=== PATIENT | male | born 1990 | race Caucasian/White ===

== ENCOUNTER 2017-02-19 09:42 | Emergency (ER) | payer OTHER ==
[~2017-02-19] VITALS: Ht 188 cm; Wt 81.1 kg
[~2017-02-19 09:42] MED LIST: AUGMENTIN875 MG PO; BACTRIM,SEPT1 TABLET PO; NORCO 5/3251 TABLET PO; TOBREX5 ML RIGHT EYE; TYLENOL WITH C1 EACH PO
[2017-02-19 12:20] VITALS: BP 110/68
== END 2017-02-19 12:20 | disposition home or self-care (01) ==
LOC: EME 09:42
PROC: 3E0234Z Introduction of Serum, Toxoid and Vaccine into Muscle, Percutaneous Approach (ICD-10-PCS; principal; 2017-02-19)
DX: S61.532A Puncture wound without foreign body of left wrist, initial encounter (principal); W45.0XXA Nail entering through skin, initial encounter; Y92.69 Other specified industrial and construction area as the place of occurrence of the external cause; Y99.0 Civilian activity done for income or pay
CPT/HCPCS: 73110; 99281; 99284

== ENCOUNTER 2017-04-01 01:31 | Emergency (ER) | payer SELFPAY ==
[~2017-04-01] VITALS: Ht 190.5 cm; Wt 79.2 kg
[2017-04-01 02:37] LABS: EOSINOPHIL (%) 2.8 % (0-5); EOSINOPHIL COUNT 0.3 K/uL (0-0.3); HEMATOCRIT 42.7 % (38.0-50.0); IMMATURE GRANULOCYTE (%) 0.3 % (0.0-0.7); INSTRUMENT ABS NEUTROPHIL CT 6.5 K/uL; MCH 31.2 PG (29.0-34.0); MCHC 34.7 G/DL (30.0-36.0); MCV 89.9 FL (86-99); MEAN PLAT.VOLUME 9.1 uM^3 (9.0-12.4); MONOCYTE (%) 5.9 % (3-12); MONOCYTE COUNT 0.6 K/uL (0-0.8); NEUTROPHIL (%) 61.9 % (45-76); NEUTROPHIL COUNT 6.5 K/uL (1.8-6.4); PLATELET COUNT 303 K/uL (156-360); RBC DIS.WIDTH-CV 12.3 % (11.8-14.6); RBC DIS.WIDTH-SD 40.3 % (39-53); RED BLOOD COUNT 4.75 M/uL (4.00-5.50); WHITE BLOOD COUNT 10.5 K/uL (4.1-10.2)
[2017-04-01 02:48] LABS: CHLORIDE 104 mEq/L (99-109); POTASSIUM 3.7 mEq/L (3.7-5.4); SODIUM 139 mEq/L (136-147)
[2017-04-01 02:50] LABS: GLUCOSE 102 mg/dL (70-99)
[2017-04-01 02:51] LABS: ANION GAP 9 MEQ/L (2-14)
[2017-04-01 02:52] LABS: TOTAL BILIRUBIN 0.4 mg/dL (0.0-1.0)
[2017-04-01 02:54] LABS: ALKALINE PHOSPHATASE 40 IU/L (3-129); GFR ESTIMATE (CALCULATED) > 59 mL/min/
[2017-04-01 02:55] LABS: UREA NITROGEN (BUN) 9 mg/dL (9-23)
[2017-04-01 02:59] LABS: TROP-I INTERPRETATION NEGATIVE; TROPONIN-I < 0.01 ng/mL (0.0-0.30)
[2017-04-01] MEDS ORDERED: ZITHROMAX Z-PA250 MG PO (03:00)
[2017-04-01 03:19] VITALS: BP 112/54
== END 2017-04-01 03:22 | disposition home or self-care (01) ==
LOC: EME 01:31
PROVIDERS: Emergency Medicine
DX: J40 Bronchitis, not specified as acute or chronic (principal); F17.200 Nicotine dependence, unspecified, uncomplicated; R68.83 Chills (without fever); R25.1 Tremor, unspecified
CPT/HCPCS: 71020; 80053; 84484; 85025; 99281; 99283

== ENCOUNTER 2017-07-15 10:26 | Emergency (ER) | payer SELFPAY ==
[~2017-07-15] VITALS: Ht 190.5 cm; Wt 79.7 kg
[~2017-07-15 10:26] MED LIST changes: +ZITHROMAX Z-PA250 MG PO
[2017-07-15 10:31] VITALS: BP 135/73
[2017-07-15] MEDS ORDERED: MOTRIN800 MG PO (11:47)
== END 2017-07-15 12:50 | disposition home or self-care (01) ==
LOC: EME 10:26
PROC: 2W3MXYZ Immobilization of Left Lower Extremity using Other Device (ICD-10-PCS; principal; 2017-07-15)
DX: S80.02XA Contusion of left knee, initial encounter (principal); S83.92XA Sprain of unspecified site of left knee, initial encounter; V86.59XA Driver of other special all-terrain or other off-road motor vehicle injured in nontraffic accident, initial encounter
CPT/HCPCS: 73564; 99281; 99283

== ENCOUNTER 2017-07-21 09:35 | Emergency (ER) | payer SELFPAY ==
[~2017-07-21] VITALS: Ht 188 cm; Wt 81.1 kg
[~2017-07-21 09:35] MED LIST changes: +MOTRIN800 MG PO
[2017-07-21 10:36] VITALS: BP 135/84
== END 2017-07-21 10:36 | disposition home or self-care (01) ==
LOC: EME 09:35
DX: S83.92XA Sprain of unspecified site of left knee, initial encounter (principal); V86.99XA Unspecified occupant of other special all-terrain or other off-road motor vehicle injured in nontraffic accident, initial encounter; F17.200 Nicotine dependence, unspecified, uncomplicated
CPT/HCPCS: 99281; 99283